=== PATIENT | female | born 1975 | race Caucasian/White ===

== ENCOUNTER 2017-12-06 18:16 | Emergency (ER) | payer OTHER ==
[~2017-12-06] VITALS: Ht 154.9 cm; Wt 90.9 kg
[2017-12-06 20:15] VITALS: BP 115/73
== END 2017-12-06 20:45 | disposition home or self-care (01) ==
LOC: EMS 18:19
DX: N39.0 Urinary tract infection, site not specified (principal)
CPT/HCPCS: 99283